=== PATIENT | male | born 1980 | race Caucasian/White ===

== ENCOUNTER 2024-08-26 06:23 | Emergency (ER) | payer SELFPAY ==
[~2024-08-26] VITALS: Ht 172.7 cm; Wt 77.3 kg
[2024-08-26 06:37] VITALS: BP 124/84; PULSE 89; RESP 16; TEMP 98.4; O2SAT 100
[2024-08-26] MEDS ORDERED: CEPH-558 PO (06:47)
[2024-08-26] MEDS ORDERED: SULF-261 PO (06:47)
[2024-08-26] MEDS ORDERED: ACET-3385 PO (06:47)
[2024-08-26] MEDS ORDERED: IBUP-1492 PO (06:47)
[2024-08-26] MEDS: ACETAMINOPHEN 500 MG TABLET PO ONE (07:16)
[2024-08-26] MEDS: CEPHALEXIN MONOHYDRATE 500 MG CAPSULE PO ONE (07:16)
[2024-08-26] MEDS: SULFAMETHOX/TRIMETH DS 800-160 MG/TABLET PO ONE (07:17)
== END 2024-08-26 07:26 | disposition home or self-care (01) ==
LOC: EMS 06:30
DX: L03.311 Cellulitis of abdominal wall (principal); E11.9 Type 2 diabetes mellitus without complications; X58.XXXA Exposure to other specified factors, initial encounter
CPT/HCPCS: 82962; 99284